=== PATIENT | female | born 1990 | race Caucasian/White ===

== ENCOUNTER 2020-01-06 03:45 | Inpatient (IN) | payer OTHER ==
[2020-01-06] MEDS ORDERED: Lidocaine 2% VISCOUS* 15 ML UDC ONE (04:29)
[2020-01-06] MEDS ORDERED: Buffered Lidocaine 1% SYRIN* 1 ML/SYRINGE INTRADERM ONE (05:00)
[2020-01-06] MEDS ORDERED: Lactated Ringers 1000 ML Bag* 1,000 ML IV ONE ×2 (05:00→06:14)
[2020-01-06] MEDS ORDERED: Lactated Ringers 1000 ML Bag* 1,000 ML IV SCH ×2 (05:00→21:00)
[2020-01-06 05:21] LABS: ABS Basophils 0.1 10^3/ul (0-0.2); ABS Lymphocytes 2.2 10^3/ul (1.0-4.8); ABS Monocytes 0.7 10^3/ul (0-0.8); Eosinophil % 0.4 %; Hematocrit 39 % (35-47); Lymphocyte % 18.3 %; Mean Corpuscular HGB Conc 34 g/dL (31-36); Mean Corpuscular Hemoglobin 29 pg (27-31); Mean Corpuscular Volume 87 fL (80-97); Mean Platelet Volume 10.1 fL (7.4-10.4); Nucleated Red Blood Cells % 0.1; Platelet Count 228 10^3/uL (150-450); Red Blood Count 4.43 10^6 /uL (3.70-4.87); Red Cell Distribution Width 15 % (10-15); White Blood Count 12.1 10^3/uL (3.5-10.8)
--- NOTE | 2020-01-06 05:26 | HP ---
General Information - Reason for Visit at 39 weeks GDMA2 on insulin in labor, had been scheduled for induction this am. - General Information Maternal Age: 29 Grav: 1 Para: 0 SAB: 0 IEA: 0 Estimated Due Date: 01/11/20 Determined By: LMP Gestational Age in Weeks/Days: 39 2/7 Maternal Blood Type and Rh: B Positive - Results this Serology/RPR Result: Non-Reactive Rubella Result: Immune HBsAg Result: Negative HIV Result: Negative GBS Culture Result: Negative Past Medical History Delivery History: See Records Pertinent Past Medical History: See Records Pertinent Past Surgical History: See Records Pertinent Family History: See Records - Antepartal Records Antepartal Records: Reviewed, Complicated by: - Gestational diabetes on insulin and Obesity BMI 34 Review of Systems Constitutional: Uncomfortable CV Complaint: No Respiratory: Shortness of Breath: No Gastrointestinal: No Nausea/Vomiting, Normal Bowel Movement Genitourinary: No Dysuria, No Bleeding, No Leaking Fluid Musculoskeletal: No Complaint, No Epigastric Pain, Contractions Neurological: No Headache, No Visual Changes Movement: Normal Exam Allergies/Adverse Reactions: Allergies Penicillins Allergy (Verified 01/06/20 04:32) Rash Temp 98.3 BP 139/86 P 90 RR 20 POx 100% RA - Measurements Height: 5 ft 2 in Weight: 204 lb Weight in lbs: 204.153613 Body Mass Index (BMI): 37.3 Pre- Weight: 184 lb Weight Gained This : 20 lbs and 0 ozs - Exam Breast: Breast Exam Deferred CVA: No CVA Tenderness Extremities: No Edema Heart: Normal Rhythm/Heart Sounds HEENT: No Significant Findings Lungs: Clear Bilaterally Rectal: Rectal Exam Deferred Reflexes: DTR 2+ Thyroid: No Thyromegaly - Abdominal Exam Abdomen Exam: Non-Tender, Fundal Height Consistent with Dates - Ultrasound/Biophysical Profile Ultrasound Status: Not Done Targeted Exam Findings See L&D Outpatient Visit Provider Note for Findings: N/A Cervical Exam: 3cm Effacement: 80% Station: 0 Presenting Part: Vertex Membrane Status: Intact Bleeding/Discharge: None EFM Findings - External Monitor Findings Baseline Heart Rate: 130 External Monitor Findings: Accelerations Present Contractions: Regular, Moderate, 45-90 Seconds Assessment/Plan - Assessment in labor - Obstetrical Risk Factors Obstetrical Risk Factors: Obesity, Gestational Diabetes - A2 - Plan Plan: IV Hydration, Admit - Anticipate Vaginal Delivery - Monitor blood glucose in labor
[2020-01-06] MEDS ORDERED: OBEPIDURAL* 250 ML EPIDURAL ONE (05:28)
[2020-01-06] MEDS: D5W 1/2 NS 1000 ML BAG* 1,000 ML IV SCH ×2 (05:44→06:25)
[2020-01-06] MEDS ORDERED: Bupivacaine 0.25% SDV PF* 10 ML VIAL INJ ONE (05:46)
[2020-01-06] MEDS ORDERED: EPHEDrine (Pressors)* 50 MG/ML VIAL IV PUSH PRN (06:14)
[2020-01-06] MEDS ORDERED: Famotidine TAB* 20 MG PO PRN (06:14)
[2020-01-06] MEDS ORDERED: Phenylephrine 40 MCG/ML SYRINGE IV PUSH PRN (06:14)
[2020-01-06] MEDS ORDERED: Sodium Citrate/Citric Acid* 15 ML UDC PO PRN (06:14)
[2020-01-06] MEDS: Lactated Ringers 1000 ML Bag* 1,000 ML IV SCH ×4 (06:27→20:34)
[2020-01-06] MEDS ORDERED: OBEPIDURAL* 250 ML EPIDURAL SCH (07:00)
--- NOTE | 2020-01-06 08:49 | PN ---
Progress Note - Progress Note Date of Service: 01/06/20 Note: Care taken over from physician correctional supervisor lieutenant overnight, pt reviewed with overnight call physician. Pt is a 29 y/o G1 at 39w2d, complicated by GDMA2, in active labor now. Cervix re-examined at ~835am, 6cm/80%/-1. AROM'd with clear fluid. FHT is 130/moderate/+accels/no decels [place] - fer regularly GDMA2 - FSBG on arrival was 94; repeat after receiving D5 in fluids was 119 D5 in fluids discontinued, continue q 2 hour FSBG values, pt did not take Insulin last night, usual regimen is NPH 6 U Q hs. If Glucose >120 will treat as indicated. EFW at 48% on 12/16. EFW via [place] 7#8oz Pt is comfortable with epidural. RH+/RI GBS Negative Continue expectant management, will augment with Pitocin if indicated Anticipate vaginal delivery DO ELIZABETH Blanton
[2020-01-06] MEDS: Ondansetron INJ* 2 MG/ML VIAL IV PRN ×2 (10:20→21:25)
[2020-01-06 12:38] LABS: Urine Benzodiazepine Screen None Detected (None Detect); Urine Opiates Screen None Detected (None Detect)
--- NOTE | 2020-01-06 13:18 | PN ---
Progress Note - Progress Note Date of Service: 01/06/20 Note: Pt continuing to make spontaneous cervical change in spontaneous labor. AROM'd with clear fluid at ~ 845am Cervix now 7cm/100/0 station FHT baseline 130bpm/moderate variabilit/+accels/no decels [place] q 2-4 minutes Apolinar regularly, making spontaneous cervical change RH+/Rubella Immune GBS negative Continue to expectantly manage DO ELIZABETH Blanton
[2020-01-06] MEDS ORDERED: Oxytocin in LR* 20 UNITS/1,000 ML BAG IVPB ONE (17:10)
[2020-01-06] MEDS ORDERED: fentaNYL* 50 MCG/ML 2 ML VIAL (100 MCG VIAL) ONE (18:35)
[2020-01-06] MEDS ORDERED: Lidocaine 1% INJ* 10 MG/ML 30 ML SDV ONE (18:43)
[2020-01-06] MEDS ORDERED: Glycerin ADULT SUPP PR PRN (20:03)
[2020-01-06] MEDS ORDERED: oxyCODONE TAB* 5 MG TAB PO PRN (20:03)
[2020-01-06] MEDS ORDERED: Oxytocin in LR* 20 UNITS/1,000 ML BAG IVPB SCH (21:00)
[2020-01-06] MEDS ORDERED: Simethicone TAB* 80 MG TAB.CHEW PO SCH (21:00)
[2020-01-06] MEDS: Dibucaine 1% 28.35 GM TUBE PR PRN (21:25)
[2020-01-06] MEDS: Witch Hazel PAD* JAR TOPICAL PRN (21:25)
[2020-01-06] MEDS ORDERED: Ammonia Inhalant* 1 EA AMP ONE (21:38)
[2020-01-06 21:53] LABS: Schistocytes ABSENT
[2020-01-06 21:55] LABS: Hematocrit 24 % (35-47); Hemoglobin 7.8 g/dL (12.0-16.0); Mean Corpuscular HGB Conc 33 g/dL (31-36); Mean Corpuscular Hemoglobin 29 pg (27-31); Mean Corpuscular Volume 88 fL (80-97); Mean Platelet Volume 9.9 fL (7.4-10.4); Platelet Count 204 10^3/uL (150-450); Red Blood Count 2.69 10^6 /uL (3.70-4.87); Red Cell Distribution Width 15 % (10-15); White Blood Count 25.1 10^3/uL (3.5-10.8)
[2020-01-06 22:02] LABS: Activated Partial Thrombo Time 26.8 seconds (26.0-38.0); Fibrinogen 393.4 mg/dL (110.8-404.3); INR 0.97 (0.82-1.09)
[2020-01-06 22:11] LABS: Platelet Count 204 10^3/ul (150-450)
[2020-01-06] MEDS ORDERED: diPHENhydraMINE PO* 25 MG PO ONE (22:15)
[2020-01-06] MEDS: oxyCODONE TAB* 5 MG TAB PO PRN (22:25)
[2020-01-06] MEDS: Docusate CAP* 100 MG PO SCH (22:25)
[2020-01-06] MEDS: Acetaminophen TAB* 325 MG PO PRN (22:50)
--- NOTE | 2020-01-06 23:19 | PROCNOTE ---
[facility] OB: Delivery Note - Delivery A Date of : 01/06/20 Time of : 18:14 [place] Sex: Female Score 1 Minute: 9 Score 5 Minutes: 9 Gestational Age in Weeks and Days at Delivery: 39 Weeks and 2 Days Delivery Method: Spontaneous Vaginal Labor: Spontaneous Did Patient attempt ?: N/A, No Previous Amniotic Fluid: Meconium Estimated Blood Loss: 750 Anesthesia/Analgesia: CEI for Labor Delivered By: Justino Nation JR - Nursery Level of Nursery: Regular/Bedside - Perineum Perineal Injury: Perineal Laceration - 2nd Degree Laceration, Bilateral sulcul tears, bilateral labial tears, Vaginal Laceration, 2nd Degree Perineal Repair: By Delivering Practioner - Difficult repair secondary to deep bilateral sulcal and severe bilateral labial tears. Rectal exam performed at beginning and end of repair with no evidence of 4th degree laceration. There was no anal sphincter muscle involvement. Repair performed with 2-0 and 3-0 Vicryl. The majority of blood loss appeared to be secondary to perineal injury. - Events Delivery Events of Note: Pitocin Only After Delivery - Risk for Falls Delivered OB Patient- Risk for Falls: Heavy Bleeding, Low Hematocrit (<29) Fall Risk: Patient is at High Risk for Falls - Additional Delivery Notes Additional Delivery Notes: 29 y/o G1 presented to the hospital in active labor at 39w2d. Progressed to fully dilated after AROM and without other augmentation. Pushed for 45 minutes before delivery of a healthy female. There was an extensive 2nd degree perineal laceration with bilateral sulcul tears and bilateral labial tears. Repair was performed with 2-0 and 3-0 Vicryl, local anesthetic as well as one dose of IV Fentanyl. Pt had unusually hemorrhage which the majority of blood loss was attributed to the perineal injury as patient exhibited persistent excellent Uterine tone immediately after spontaneous expulsion of the placenta shortly after delivery. EBL at time of delivery was 750ml. PT hemodynamically stable in the immediate post period. Plan to check H/H at 4 hours post .
--- NOTE | 2020-01-07 00:03 | PN ---
Progress Note - Progress Note Date of Service: 01/07/20 Note: Approximately 1 hour after delivery patient's BP's were found to be hypotensive and pt exhibited slight tachycardia, she was otherwise asymptomatic. Additionally a Quantative blood loss performed by nursing was reported at this time at ~2500ml, given presence of large amount of amniotic fluid at time of delivery though, this value is felt to be somewhat falsely elevated, I suspect total EBL is still less than 1500ml. Stat laboratory evaluation for blood loss and DIC screen was performed. Pt's Vitals improved with IVF. H/H returned at 7.8 /24 down from 1339 on admission. Plts remained stable. Fibrinogen normal, INR normal. AVSS have remained stable since initiation of IVF. Pt has not had any significant bleeding since delivery and her uterine fundus is firm in the midline at the level of the umbilicus. Given significant drop in H/H though, 2 U PRBC transfusion was recommended to patient. Pt agrees to transfusion and consent was obtained after a careful review of the risks/benefits/alternatives. We will continue to monitor patient's vital signs closely, if she remains hemodynamically stable, will re-check bloodwork at 4 hours after completion of transfusion, if there are any signs of hemodynamic instabiltiy, will repeat labs sooner and address as indicated. DO ELIZABETH Blanton
[2020-01-07] MEDS: oxyCODONE TAB* 5 MG TAB PO PRN ×4 (02:51→19:09)
[2020-01-07] MEDS: Ibuprofen TAB* 600 MG PO PRN ×3 (05:53→21:48)
[2020-01-07 08:54] LABS: ABS Lymphocytes 1.8 10^3/ul (1.0-4.8); ABS Monocytes 1.3 10^3/ul (0-0.8); Eosinophil % 0.1 %; Hematocrit 27 % (35-47); Lymphocyte % 9.4 %; Mean Corpuscular HGB Conc 33 g/dL (31-36); Mean Corpuscular Hemoglobin 29 pg (27-31); Mean Corpuscular Volume 88 fL (80-97); Platelet Count 173 10^3/uL (150-450); Red Blood Count 3.07 10^6 /uL (3.70-4.87); Red Cell Distribution Width 15 % (10-15); White Blood Count 19.1 10^3/uL (3.5-10.8)
[2020-01-07] MEDS: Ferrous Gluconate TAB* 324 MG TAB PO SCH ×2 (09:54→19:55)
[2020-01-07] MEDS: Docusate CAP* 100 MG PO SCH ×3 (09:54→19:55)
[2020-01-08] MEDS: oxyCODONE TAB* 5 MG TAB PO PRN (01:58)
[2020-01-08] MEDS: Ibuprofen TAB* 600 MG PO PRN ×2 (04:35→11:32)
[2020-01-08] MEDS: Dibucaine 1% 28.35 GM TUBE PR PRN ×3 (04:39→12:41)
[2020-01-08 06:38] LABS: Hematocrit 23 % (35-47); Hemoglobin 8.1 g/dL (12.0-16.0)
[2020-01-08 08:04] VITALS: BP 110/59
[2020-01-08] MEDS: Docusate CAP* 100 MG PO SCH (08:29)
[2020-01-08] MEDS: Ferrous Gluconate TAB* 324 MG TAB PO SCH (08:29)
[2020-01-08] MEDS: Witch Hazel PAD* JAR TOPICAL PRN ×2 (08:29→12:41)
[2020-01-08] MEDS: Acetaminophen TAB* 325 MG PO PRN ×2 (08:29→12:41)
== END 2020-01-08 13:57 | disposition home or self-care (01) | DRG 560 ==
LOC: MCHOBOUT 03:45 → MCHOB 04:54
PROVIDERS: ADMIT Obstetrics & Gynecology; ATTEND Obstetrics & Gynecology
PROC: 10E0XZZ Delivery of Products of Conception, External Approach (ICD-10-PCS; principal; 2020-01-06)
PROC: 0KQM0ZZ Repair Perineum Muscle, Open Approach (ICD-10-PCS; 2020-01-06)
PROC: 10907ZC Drainage of Amniotic Fluid, Therapeutic from Products of Conception, Via Natural or Artificial Opening (ICD-10-PCS; 2020-01-06)
PROC: 30233N1 Transfusion of Nonautologous Red Blood Cells into Peripheral Vein, Percutaneous Approach (ICD-10-PCS; 2020-01-06)
DX: O24.424 Gestational diabetes mellitus in childbirth, insulin controlled (principal); O72.1 Other immediate postpartum hemorrhage; Z37.0 Single live birth; D62 Acute posthemorrhagic anemia; O99.214 Obesity complicating childbirth; O99.344 Other mental disorders complicating childbirth; F32.9 Major depressive disorder, single episode, unspecified; O70.1 Second degree perineal laceration during delivery; O77.0 Labor and delivery complicated by meconium in amniotic fluid; O90.81 Anemia of the puerperium; Z3A.38 38 weeks gestation of pregnancy
CPT/HCPCS: 36415; 80307; 85014; 85018; 85025; 85027; 85049; 85362; 85384; 85610; 85730; 86850; 86900; 86901; 86922; A9270-GY; G0480; J2405; J3010; J3490; P9040